=== PATIENT | male | born 1960 | race Caucasian/White ===

== ENCOUNTER 2018-11-27 08:29 | Inpatient (IN) | payer MEDICAID ==
[~2018-11-27] VITALS: Ht 182.9 cm; Wt 95.0 kg
[~2018-11-27 08:29] MED LIST: BICA50TA48 PO; HYDR-4383 PO; TERA2CAP4 PO
[2018-11-27] MEDS ORDERED: normal saline 1000ML IV soln IV ONE (11:25)
[2018-11-27] MEDS ORDERED: famotidine/PF 10 mg/ml inj IV ONE (11:30)
[2018-11-27] MEDS ORDERED: metoprolol tartrate 1mg/ml inj IV ONE ×2 (11:30→14:30)
[2018-11-27] MEDS ORDERED: HYDROmorphone 1 mg/ml syringe IV ONE (11:30)
[2018-11-27] MEDS ORDERED: LORazepam 2 mg/ml vial IV ONE (11:30)
[2018-11-27] MEDS ORDERED: ondansetron/PF 4mg/2ml inj IV ONE (11:30)
[2018-11-27 11:58] LABS: BASOPHILS % (AUTO) 0.1 % (0-1); EOSINOPHILS % (AUTO) 0 % (0-6); HEMOGLOBIN 16.7 g/dl (14.0-17.9); LYMPHOCYTES # (AUTO) 0.6 X10'3 (1.1-4.8); LYMPHOCYTES % (AUTO) 4.3 % (21-51); MEAN CORPUSCULAR HEMOGLOBIN 30.7 PG (27.0-31.0); MEAN CORPUSCULAR VOLUME 90.1 FL (78-98); MEAN PLATELET VOLUME 8.2 FL (7.4-10.4); MONOCYTES # (AUTO) 0.4 X10'3 (0-0.9); MONOCYTES % (AUTO) 3.3 % (2-12); NEUTROPHILS # (AUTO) 12.3 X10'3 (1.8-7.7); NEUTROPHILS % (AUTO) 92.3 % (42-75); PLATELET COUNT 287 X10'3 (140-440); RED BLOOD COUNT 5.43 X10'6 (4.70-6.10); RED CELL DISTRIBUTION WIDTH 12.9 % (11.5-14.5); WHITE BLOOD COUNT 13.3 X10'3 (4.5-11.0)
[2018-11-27 12:13] LABS: ALANINE AMINOTRANSFERASE 28 U/L (12-78); ALBUMIN 4.7 G/DL (3.4-5.0); ALBUMIN/GLOBULIN RATIO 1.3 (1.1-1.5); ALKALINE PHOSPHATASE 100 IU/L (46-116); ANION GAP 16 (8-16); ASPARTATE AMINO TRANSFERASE 23 U/L (10-37); BILIRUBIN,TOTAL 0.9 MG/DL (0.1-1.0); BLOOD UREA NITROGEN 20 MG/DL (7-18); BUN/CREATININE RATIO 17.1 (5.4-32.0); CALCIUM 9.6 MG/DL (8.5-10.1); CHLORIDE 104 MMOL/L (99-107); CREATININE 1.17 MG/DL (0.60-1.10); GLUCOSE 175 MG/DL (70-104); POTASSIUM 3.4 MMOL/L (3.5-5.1); SODIUM 141 MMOL/L (135-145); TOTAL PROTEIN 8.2 G/DL (6.4-8.2); eGFR 64 ML/MIN
[2018-11-27 12:27] LABS: INR 1.1 INR
[2018-11-27] MEDS ORDERED: niCARDipine/sod cl 20mg/200ml 200 ML IV SCH (13:40)
[2018-11-27] MEDS ORDERED: niCARDipine-NS 40mg/200ml IVPB 200 ML IV SCH ×2 (13:41→16:20)
[2018-11-27] MEDS ORDERED: metoclopramide 5 mg/ml inj IV ONE (13:50)
[2018-11-27] MEDS ORDERED: HYDROmorphone 2mg/ml vial IV PRN (14:55)
[2018-11-27] MEDS ORDERED: HYDROmorphone 1 mg/ml syringe IV PRN (14:55)
[2018-11-27] MEDS ORDERED: normal saline 1000ml 1,000 ML IV SCH (16:08)
[2018-11-27] MEDS ORDERED: acetaminophen 325mg tablet PO PRN ×2 (16:10)
[2018-11-27] MEDS ORDERED: morphine 4 MG/ML inj SYRINge IV PRN (16:10)
[2018-11-27] MEDS ORDERED: magnesium Cl slow-release 64mg tablet PO PRN (16:10)
[2018-11-27] MEDS ORDERED: potassium Cl 40MEQ/NS 500ml 500 ML IV PRN ×2 (16:10)
[2018-11-27] MEDS ORDERED: potassium Cl 20 mEq SR tablet PO PRN (16:10)
[2018-11-27] MEDS ORDERED: magnesium 2GM in 50ml NS 50 ML IV PRN (16:10)
[2018-11-27] MEDS ORDERED: HYDROcodone/acetaminophen 5mg/325mg tablet PO PRN (16:10)
[2018-11-27] MEDS ORDERED: magnesium 4gm in 100ml NS 100 ML IV PRN (16:10)
[2018-11-27] MEDS ORDERED: docusate sod 100mg capsule PO PRN (16:10)
[2018-11-27 16:56] LABS: CLARITY,URINE SLIGHTLY CLOUDY (Clear); COLOR,URINE DARK YELLOW (Yellow); GLUCOSE, URINE NEGATIVE (Neg); KETONES,URINE 40 mg/dl (Neg); LEUKOCYTE ESTERASE ,URINE NEGATIVE (Neg); NITRITES, URINE NEGATIVE (Neg); OCCULT BLOOD,URINE TRACE-INTACT (Neg); PROTEIN,URINE 100 mg/dl (Neg); UA COLLECTION TYPE NON-SPECIFIED; UROBILINOGEN,URINE 0.2 E.U/dL (0.2-1.0)
[2018-11-27 17:01] LABS: BACTERIA,URINE NONE SEEN /HPF (Neg); MUCUS STRANDS MANY /LPF (Neg); RBC,URINE NONE SEEN /HPF (0-2); SQUAMOUS EPITHELIAL CELL,UR FEW /LPF (FEW); WBC,URINE 0-4 /HPF (0-4)
--- NOTE | 2018-11-27 17:31 | NUR ---
patient refuses pain med at this time.
[2018-11-27] MEDS: HYDROcodone/acetaminophen 10/325mg tab PO PRN (17:46)
--- NOTE | 2018-11-27 18:20 | NUR ---
ED order of bassam mcgee completed @ assumption of care
[2018-11-27] MEDS: morphine 4 MG/ML inj SYRINge IV PRN (19:01)
[2018-11-27] MEDS: ondansetron/PF 4mg/2ml inj IV PRN (19:02)
[2018-11-27] MEDS ORDERED: LOSA25TA96 PO (19:23)
[2018-11-27] MEDS ORDERED: EFF25T PO (19:23)
[2018-11-27] MEDS ORDERED: HCTZ25T (19:23)
[2018-11-27] MEDS ORDERED: [UNRECOGNIZED DRUG - OTHER] (19:23)
[2018-11-27] MEDS ORDERED: AMLO2.5T2 PO (19:23)
[2018-11-27] MEDS ORDERED: PER10325T PO (19:23)
[2018-11-27] MEDS ORDERED: CLON-529 PO (19:25)
[2018-11-27] MEDS: heparin, porcine 5000 units/ml vial SQ SCH (20:46)
[2018-11-27] MEDS ORDERED: temazepam 15mg capsule PO PRN (21:00)
[2018-11-27] MEDS ORDERED: Terazosin 1mg capsule PO SCH (21:00)
[2018-11-27] MEDS ORDERED: non-formulary drug (Terazosin HCl 1 CAP) PO SCH (21:00)
--- NOTE | 2018-11-27 22:45 | NUR ---
pt placed on hospital bed for comfort
[2018-11-28] MEDS: ondansetron/PF 4mg/2ml inj IV PRN (02:42)
[2018-11-28] MEDS: morphine 4 MG/ML inj SYRINge IV PRN ×3 (02:43→13:23)
--- NOTE | 2018-11-28 05:10 | NUR ---
pt arrived from the ER via hospital bed after receiving report from Analia MARTINI. No signs of distress.
[2018-11-28 05:20] VITALS: BP 136/86
[2018-11-28] MEDS: HYDROcodone/acetaminophen 10/325mg tab PO PRN (05:23)
--- NOTE | 2018-11-28 06:15 | NUR ---
Problems reprioritized. Patient report given, questions answered & plan of care reviewed with Sophie MARTINI. No signs of distress. frq used belongings and call light in reach. IV intact, IVF infusing.
[2018-11-28 06:36] LABS: BASOPHILS % (AUTO) 0.2 % (0-1); EOSINOPHILS % (AUTO) 0.3 % (0-6); HEMOGLOBIN 13.1 g/dl (14.0-17.9); LYMPHOCYTES # (AUTO) 1.4 X10'3 (1.1-4.8); LYMPHOCYTES % (AUTO) 17.9 % (21-51); MEAN CORPUSCULAR HGB CONC 34.5 g/dL (33.0-36.5); MEAN CORPUSCULAR VOLUME 89.8 FL (78-98); MEAN PLATELET VOLUME 8.5 FL (7.4-10.4); MONOCYTES # (AUTO) 0.8 X10'3 (0-0.9); NEUTROPHILS # (AUTO) 5.6 X10'3 (1.8-7.7); NEUTROPHILS % (AUTO) 71.6 % (42-75); PLATELET COUNT 178 X10'3 (140-440); RED BLOOD COUNT 4.23 X10'6 (4.70-6.10); RED CELL DISTRIBUTION WIDTH 12.7 % (11.5-14.5); WHITE BLOOD COUNT 7.8 X10'3 (4.5-11.0)
[2018-11-28 06:42] LABS: ALANINE AMINOTRANSFERASE 21 U/L (12-78); ALBUMIN 3.4 G/DL (3.4-5.0); ALBUMIN/GLOBULIN RATIO 1.3 (1.1-1.5); ALKALINE PHOSPHATASE 70 IU/L (46-116); ANION GAP 10 (8-16); ASPARTATE AMINO TRANSFERASE 24 U/L (10-37); BILIRUBIN,TOTAL 0.7 MG/DL (0.1-1.0); BLOOD UREA NITROGEN 11 MG/DL (7-18); BUN/CREATININE RATIO 13.8 (5.4-32.0); CALCIUM 8.1 MG/DL (8.5-10.1); CHLORIDE 107 MMOL/L (99-107); GLUCOSE 102 MG/DL (70-104); POTASSIUM 3.2 MMOL/L (3.5-5.1); SODIUM 140 MMOL/L (135-145); TOTAL CARBON DIOXIDE 23.2 MMOL/L (24-32); TOTAL PROTEIN 6.1 G/DL (6.4-8.2); eGFR > 90 ML/MIN
[2018-11-28 06:46] LABS: MAGNESIUM 1.9 MG/DL (1.5-2.4)
[2018-11-28 07:42] VITALS: BP 117/77
[2018-11-28] MEDS ORDERED: losartan 50mg tablet PO SCH (08:00)
[2018-11-28] MEDS ORDERED: cloNIDine 0.1 mg tablet PO SCH (08:00)
[2018-11-28] MEDS ORDERED: venlafaxine 25mg tablet PO SCH (08:00)
[2018-11-28] MEDS ORDERED: amLODIPine 2.5mg tablet PO SCH (08:00)
[2018-11-28] MEDS ORDERED: K and/or MAG REPLACEMENT MC SCH (08:00)
[2018-11-28] MEDS: heparin, porcine 5000 units/ml vial SQ SCH (09:00)
[2018-11-28] MEDS: potassium Cl 20 mEq SR tablet PO PRN ×2 (09:14→13:22)
[2018-11-28] MEDS ORDERED: OMEP20TA23 PO (10:22)
[2018-11-28] MEDS ORDERED: POTA20TA19 PO (10:22)
[2018-11-28] MEDS ORDERED: ASPI81TA52 PO (10:30)
--- NOTE | 2018-11-28 12:42 | NUR ---
PAGER ID: [phone] MESSAGE: [phone] [facility] Pt. just getting prepared to leave and is have sharp / "heart pain" in his L breast. EKG started now. Tele called. tech states SR at this time. Please come read EKG within 10 min. Thank you. Sophie MARTINI [phone]
[2018-11-28 13:02] VITALS: BP 95/68
--- NOTE | 2018-11-28 13:12 | NUR ---
MD read EKG, assessed pt. ordering one troponin and a manual BP. If ok results pt. is ok to be discharged.
--- NOTE | 2018-11-28 14:07 | NUR ---
Troponin being drawn now. Awaiting results for discharge.
--- NOTE | 2018-11-28 14:38 | NUR ---
PAGER ID: [phone] MESSAGE: [id number] [facility] Troponin ok. BP ok. Sending pt. home. Meds already called in to pharmacy. Call surgical unit if you disagree.
--- NOTE | 2018-11-28 15:30 | NUR ---
Pt. discharged in a stable condition. No chest pain at time of departure. He took his belongings. IV was DC'd, pressure bandage applied, no s/sx bleeding noted. Tele DC'd and returned. Pt. Aware his prescriptions are awaiting him in [facility]. His friend picked him up to give him a ride. Discharged paperwork reviewed with pt. Pt. knows to come back to ER if any more symptoms persist and to follow up with his primary care provider and oncologist within a week.
== END 2018-11-28 15:10 | disposition home or self-care (01) | DRG 199 ==
LOC: ER 08:30 → ED HOLD 16:08 → EDBEDREQ 11-28 04:42 → SUR 3N 11-28 05:10
PROVIDERS: ADMIT Internal Medicine; ATTEND Internal Medicine
DX: I10 Essential (primary) hypertension (principal); C79.51 Secondary malignant neoplasm of bone; C61 Malignant neoplasm of prostate; M94.0 Chondrocostal junction syndrome [Tietze]; E87.6 Hypokalemia; F12.90 Cannabis use, unspecified, uncomplicated; G89.4 Chronic pain syndrome; K29.70 Gastritis, unspecified, without bleeding; K52.9 Noninfective gastroenteritis and colitis, unspecified; Z66 Do not resuscitate; Z91.14 Patient's other noncompliance with medication regimen; Z88.5 Allergy status to narcotic agent; Z79.82 Long term (current) use of aspirin; Z79.899 Other long term (current) drug therapy
CPT/HCPCS: 36415; 70450; 71045; 71250; 74176; 80053; 81001; 82140; 82948; 83605; 83735; 83880; 84484; 85025; 85610; 86885; 86900; 86901; 87040; 87070; 93005; 93308; 96374; 96375; 99285; G0378; J1170; J1644; J2060; J2270; J2405; J2765; J3490

== ENCOUNTER 2019-07-11 10:13 | Emergency (ER) | payer MEDICAID ==
[~2019-07-11] VITALS: Ht 182.9 cm; Wt 91.0 kg
[~2019-07-11 10:13] MED LIST changes: +AMLO2.5T2 PO; -BICA50TA48 PO; +CLON-529 PO; +EFF25T PO; -HYDR-4383 PO; +LOSA25TA96 PO; +OMEP20TA23 PO; +PER10325T PO; +[UNRECOGNIZED DRUG - OTHER]
[2019-07-11 11:32] LABS: BASOPHILS % (AUTO) 0.4 % (0-1); EOSINOPHILS % (AUTO) 0.2 % (0-6); HEMATOCRIT 44.3 % (42.0-52.0); HEMOGLOBIN 15.4 g/dl (14.0-17.9); LYMPHOCYTES # (AUTO) 0.7 X10'3 (1.1-4.8); LYMPHOCYTES % (AUTO) 6.8 % (21-51); MEAN CORPUSCULAR HEMOGLOBIN 31.5 PG (27.0-31.0); MEAN CORPUSCULAR HGB CONC 34.7 g/dL (33.0-36.5); MEAN CORPUSCULAR VOLUME 90.8 FL (78-98); MEAN PLATELET VOLUME 8.9 FL (7.4-10.4); MONOCYTES # (AUTO) 0.4 X10'3 (0-0.9); MONOCYTES % (AUTO) 3.6 % (2-12); NEUTROPHILS # (AUTO) 9.6 X10'3 (1.8-7.7); PLATELET COUNT 262 X10'3 (140-440); RED BLOOD COUNT 4.88 X10'6 (4.70-6.10); RED CELL DISTRIBUTION WIDTH 12.6 % (11.5-14.5); WHITE BLOOD COUNT 10.8 X10'3 (4.5-11.0)
[2019-07-11 11:47] LABS: ALANINE AMINOTRANSFERASE 16 U/L (12-78); ALBUMIN 4.6 G/DL (3.4-5.0); ALBUMIN/GLOBULIN RATIO 1.3 (1.1-1.5); ALKALINE PHOSPHATASE 120 IU/L (46-116); AMYLASE 34 U/L (25-115); ANION GAP 19 (8-16); ASPARTATE AMINO TRANSFERASE 17 U/L (10-37); BILIRUBIN,TOTAL 0.7 MG/DL (0.1-1.0); BLOOD UREA NITROGEN 17 MG/DL (7-18); BUN/CREATININE RATIO 15.3 (5.4-32.0); CHLORIDE 103 MMOL/L (99-107); CREATININE 1.11 MG/DL (0.60-1.10); GLUCOSE 144 MG/DL (70-104); LIPASE 88 U/L (73-393); POTASSIUM 3.3 MMOL/L (3.5-5.1); SODIUM 141 MMOL/L (135-145); TOTAL CARBON DIOXIDE 19.4 MMOL/L (24-32); TOTAL PROTEIN 8.2 G/DL (6.4-8.2); eGFR 68 ML/MIN
[2019-07-11 11:53] LABS: CALCIUM 10.6 MG/DL (8.5-10.1)
[2019-07-11] MEDS ORDERED: normal saline 1000ML IV soln IVB ONE ×2 (12:45)
[2019-07-11] MEDS ORDERED: pantoprazole 40 MG vial IV ONE (12:45)
[2019-07-11] MEDS ORDERED: ondansetron/PF 4mg/2ml inj IV ONE (12:45)
[2019-07-11] MEDS ORDERED: morphine 4 MG/ML inj SYRINge IV ONE (13:45)
[2019-07-11] MEDS ORDERED: PANT-47 PO (15:39)
[2019-07-11] MEDS ORDERED: ONDA8TAB13 PO (15:39)
[2019-07-11] MEDS ORDERED: HYDROchlorothiazide 25mg tablet PO ONE (15:50)
[2019-07-11] MEDS ORDERED: losartan 50mg tablet PO SCH (15:50)
[2019-07-11] MEDS ORDERED: amLODIPine 5mg tablet PO ONE (15:50)
[2019-07-11] MEDS ORDERED: HYDROchlorothiazide 12.5mg capsule PO ONE (15:55)
[2019-07-11 16:38] VITALS: BP 167/93
== END 2019-07-11 16:41 | disposition home or self-care (01) ==
LOC: ER 10:14
DX: R11.10 Vomiting, unspecified (principal); R19.7 Diarrhea, unspecified; R10.13 Epigastric pain; I10 Essential (primary) hypertension; G89.29 Other chronic pain; R50.9 Fever, unspecified; F12.90 Cannabis use, unspecified, uncomplicated; Z79.899 Other long term (current) drug therapy; Z87.19 Personal history of other diseases of the digestive system; Z85.46 Personal history of malignant neoplasm of prostate
CPT/HCPCS: 36415; 80053; 82150; 83690; 85025; 85610; 96361; 96374; 96375; 99283; C9113; J2270; J2405; J7030